=== PATIENT | female | born 1945 | race Caucasian/White ===

== ENCOUNTER 2018-03-07 10:17 | Day surgery (SDC) | payer MEDICARE, BC ==
[~2018-03-07] VITALS: Ht 177.8 cm; Wt 75.0 kg
[2018-03-07 10:58] VITALS: BP 147/76
== END 2018-03-07 13:14 | disposition home or self-care (01) ==
LOC: CACL 10:17
PROVIDERS: ATTEND Internal Medicine Cardiovascular Disease
DX: R55 Syncope and collapse (principal); R00.0 Tachycardia, unspecified; Z72.89 Other problems related to lifestyle; Z79.899 Other long term (current) drug therapy; Z98.890 Other specified postprocedural states; Z88.1 Allergy status to other antibiotic agents; Z88.0 Allergy status to penicillin
CPT/HCPCS: 33282; C1764

== ENCOUNTER → 2018-03-08 | Outpatient (CLI) | payer MEDICARE, BC ==
[~2018-03-08] MED LIST: LIDOCAINE-MPF 2%, 2ML ONE
== END | disposition home or self-care (01) ==
LOC: CVU 10:56
PROVIDERS: ATTEND Internal Medicine Cardiovascular Disease
DX: I08.2 Rheumatic disorders of both aortic and tricuspid valves (principal); I45.10 Unspecified right bundle-branch block; I45.6 Pre-excitation syndrome; R00.0 Tachycardia, unspecified; R55 Syncope and collapse; Z88.0 Allergy status to penicillin
CPT/HCPCS: 93306; J3490

== ENCOUNTER 2018-03-22 06:28 | Observation (INO) | payer MEDICARE, BC ==
[2018-03-21 12:23] LABS: BASOPHILS # (AUTO) 0.03 x10^3/uL (0-0.1); BASOPHILS % (AUTO) 0 % (0-1); EOSINOPHILS # (AUTO) 0.13 x10^3/uL (0-0.4); EOSINOPHILS % (AUTO) 2 % (1-7); LYMPHOCYTES # (AUTO) 1.83 x10^3/uL (1-3.4); LYMPHOCYTES % (AUTO) 30 % (22-44); MD NO; MEAN CORPUSCULAR HEMOGLOBIN 33.2 pg (27.0-34.8); MEAN CORPUSCULAR HGB CONC 33.9 g/dL (32.4-35.8); MEAN CORPUSCULAR VOLUME 97.8 fL (80-100); MEAN PLATELET VOLUME 8.1 fL (7.4-10.4); MONOCYTES # (AUTO) 0.56 x10^3/uL (0.2-0.8); MONOCYTES % (AUTO) 9 % (2-9); NEUTROPHILS # (AUTO) 3.48 x10^3/uL (1.8-6.8); NEUTROPHILS % (AUTO) 58 % (42-75); PLATELET COUNT 244 x10^3/uL (130-400); RED BLOOD COUNT 4.53 x10^6/uL (3.82-5.3); RED CELL DISTRIBUTION WIDTH 13.3 % (9.6-15.2)
[2018-03-21 12:39] LABS: CHLORIDE 105 mmol/L (98-107)
[2018-03-21 12:46] LABS: ALANINE AMINOTRANSFERASE 21 U/L (12-78); ALKALINE PHOSPHATASE 65 U/L (45-117); ANION GAP 7 mmol/L (5-15); BILIRUBIN,TOTAL 0.5 mg/dL (0.2-1.0); CALCIUM 9.3 mg/dL (8.5-10.1); CREATININE 0.88 mg/dL (0.55-1.02)
[2018-03-21 12:49] VITALS: BP 150/80
[~2018-03-22] VITALS: Ht 177.8 cm; Wt 77.4 kg
[~2018-03-22 06:28] MED LIST changes: +COAL21.2 TP; -LIDOCAINE-MPF 2%, 2ML ONE
[2018-03-22] MEDS ORDERED: SODIUM CHLORIDE 0.9% 1,000 ML IV SCH (06:37)
[2018-03-22] MEDS ORDERED: MIDAZOLAM 1 MG/ML, 2ML ONE (08:06)
[2018-03-22] MEDS ORDERED: VANCOMYCIN 500 MG ONE (08:07)
[2018-03-22] MEDS ORDERED: VANCOMYCIN PMX 1GM/200ML 200 ML ONE (08:07)
[2018-03-22] MEDS ORDERED: FENTANYL PF 100 MCG/2ML ONE (08:07)
[2018-03-22] MEDS ORDERED: LIDOCAINE 1%, 50ML ONE (08:07)
[2018-03-22] MEDS ORDERED: HOLD MEDICATION MC PRN (09:30)
[2018-03-22] MEDS ORDERED: COAL TAR TP SCH (09:30)
[2018-03-22] MEDS ORDERED: ACETAMINOPHEN 325 MG TABLET PO PRN (09:30)
[2018-03-22 10:00] VITALS: BP 136/81
[2018-03-22 12:31] VITALS: BP 138/79
[2018-03-22] MEDS ORDERED: VANCOMYCIN PMX 1GM/200ML 200 ML IVPB ONE (20:00)
[2018-03-22 20:39] VITALS: BP 147/86
[2018-03-22] MEDS: SODIUM CHLORIDE FLUSH 10ML SYR IVF SCH (20:39)
[2018-03-23 02:25] VITALS: BP 156/94
[2018-03-23 07:12] VITALS: BP 131/78
[2018-03-23] MEDS: SODIUM CHLORIDE FLUSH 10ML SYR IVF SCH (09:00)
[2018-03-23] MEDS ORDERED: METO25TA35 PO (09:05)
== END 2018-03-23 11:40 | disposition home or self-care (01) ==
LOC: CACL 06:28 → ORIP 09:18 → 5SO 09:53
PROVIDERS: ADMIT Internal Medicine Cardiovascular Disease; ATTEND Internal Medicine Cardiovascular Disease
DX: I44.30 Unspecified atrioventricular block (principal); R00.1 Bradycardia, unspecified; R55 Syncope and collapse; R00.0 Tachycardia, unspecified; R00.2 Palpitations; Z95.9 Presence of cardiac and vascular implant and graft, unspecified
CPT/HCPCS: 33208; 33284; 36415; 71045; 71046; 80053; 85025; 96365; 99156; 99157; C1779; C1785; C1892; G0378; J2250; J3010; J3370; J3490

== ENCOUNTER → 2018-03-29 | Outpatient (CLI) | payer MEDICARE, BC ==
[~2018-03-29] MED LIST changes: +METO25TA35 PO
== END | disposition home or self-care (01) ==
LOC: CFH 11:26
PROVIDERS: ATTEND Internal Medicine Cardiovascular Disease
DX: I45.9 Conduction disorder, unspecified (principal); R00.0 Tachycardia, unspecified; R00.2 Palpitations
CPT/HCPCS: 71046

== ENCOUNTER 2019-11-05 12:30 | Outpatient (CLI) | payer MEDICARE, BC ==
[2019-11-05 16:13] LABS: ANION GAP 4 mmol/L (5-15); CHLORIDE 108 mmol/L (98-107)
[2019-11-05 16:28] LABS: ALANINE AMINOTRANSFERASE 27 U/L (12-78); ALKALINE PHOSPHATASE 73 U/L (45-117); BILIRUBIN,TOTAL 0.7 mg/dL (0.2-1.0); CHOL/HDL RATIO 2.8; CHOLESTEROL, TOTAL 233 mg/dL (140-239); CREATININE 0.83 mg/dL (0.55-1.02); HDL CHOL % 35 % (28-40); HDL CHOLESTEROL (DIRECT) 82 mg/dL (40-60); LDL CHOLESTEROL,CALCULATED 139 mg/dL (54-169); LDL/HDL RATIO 1.7 (0.5-3.0); TOTAL PROTEIN 7.1 g/dL (6.4-8.2); TRIGLYCERIDES 58 mg/dL (50-200); VLDL CHOLESTEROL 12 mg/dL (0-25)
== END 2019-11-05 23:59 | disposition home or self-care (01) ==
LOC: CFH 12:30
PROVIDERS: ATTEND Internal Medicine Cardiovascular Disease
DX: I48.91 Unspecified atrial fibrillation (principal); I95.9 Hypotension, unspecified; R00.0 Tachycardia, unspecified; R00.1 Bradycardia, unspecified; R55 Syncope and collapse; Z95.0 Presence of cardiac pacemaker; Z79.899 Other long term (current) drug therapy
CPT/HCPCS: 36415; 80053; 80061; 80162

== ENCOUNTER → 2020-05-03 | Outpatient (CLI) | payer MEDICARE, BC | END | disposition home or self-care (01) | LOC: CVU 09:46 | PROVIDERS: ATTEND Internal Medicine Cardiovascular Disease | DX: I08.2 Rheumatic disorders of both aortic and tricuspid valves (principal); I48.91 Unspecified atrial fibrillation | CPT/HCPCS: 93306 ==

== ENCOUNTER → 2020-05-05 | Outpatient (CLI) | payer MEDICARE, BC ==
[~2020-05-05] MED LIST changes: +REGADENOSON 0.4 MG/5 ML SYRINGE ONE
== END | disposition home or self-care (01) ==
LOC: CFH 08:09
PROVIDERS: ATTEND Internal Medicine Cardiovascular Disease
DX: I48.91 Unspecified atrial fibrillation (principal); I45.10 Unspecified right bundle-branch block; R55 Syncope and collapse
CPT/HCPCS: 78452; 93017; A9502; J2785

== ENCOUNTER 2020-05-26 07:50 | Observation (INO) | payer MEDICARE, BC ==
[~2020-05-26] VITALS: Ht 177.8 cm; Wt 76.4 kg
[~2020-05-26 07:50] MED LIST changes: -REGADENOSON 0.4 MG/5 ML SYRINGE ONE
[2020-05-26] MEDS ORDERED: RIVA20TA PO (08:17)
[2020-05-26] MEDS ORDERED: DIGO250T3 PO (08:17)
[2020-05-26] MEDS ORDERED: MIDO2.5T PO (08:22)
[2020-05-26] MEDS ORDERED: TRIAMCINOLONE 0.1% (08:22)
[2020-05-26] MEDS ORDERED: FLEC50TA25 PO (08:22)
[2020-05-26] MEDS ORDERED: CA C1TAB63 PO (08:25)
[2020-05-26 08:36] VITALS: BP 142/82
[2020-05-26 08:53] LABS: ANION GAP 5 mmol/L (5-15); CHLORIDE 107 mmol/L (98-107)
[2020-05-26 08:54] LABS: CREATININE 0.91 mg/dL (0.55-1.02)
[2020-05-26 08:55] LABS: BASOPHILS % (AUTO) 1 % (0-1); EOSINOPHILS % (AUTO) 2 % (1-7); LYMPHOCYTES % (AUTO) 30 % (22-44); MEAN CORPUSCULAR HEMOGLOBIN 32.3 pg (27.0-34.8); MEAN CORPUSCULAR HGB CONC 33.4 g/dL (32.4-35.8); MEAN PLATELET VOLUME 8.4 fL (7.4-10.4); MONOCYTES % (AUTO) 9 % (2-9); NEUTROPHILS % (AUTO) 58 % (42-75); PLATELET COUNT 250 x10^3/uL (130-400)
[2020-05-26 08:59] LABS: MD NO
[2020-05-26] MEDS ORDERED: LIDOCAINE 1%, 20ML ONE (09:34)
[2020-05-26] MEDS ORDERED: MIDAZOLAM 1 MG/ML, 2ML ONE (09:34)
[2020-05-26] MEDS ORDERED: FENTANYL PF 100 MCG/2ML ONE (09:34)
[2020-05-26] MEDS ORDERED: ONDANSETRON 2MG/ML, 2ML IVPush PRN (11:00)
[2020-05-26] MEDS ORDERED: DIPHENHYDRAMINE 50 MG CAPSULE PO PRN (11:00)
[2020-05-26] MEDS ORDERED: BISACODYL 10 MG SUPP PR PRN (11:00)
[2020-05-26] MEDS ORDERED: RIVAROXABAN 20 MG TABLET PO STA (11:31)
[2020-05-26] MEDS ORDERED: ACETAMINOPHEN 325 MG TABLET ONE (12:27)
[2020-05-26] MEDS: ACETAMINOPHEN 325 MG TABLET PO PRN ×2 (12:28→19:48)
[2020-05-26 16:00] VITALS: BP 144/67
[2020-05-26] MEDS ORDERED: RIVAROXABAN 15 MG TABLET PO SCH (17:00)
[2020-05-26 19:41] VITALS: BP 123/73
[2020-05-26] MEDS: FLECAINIDE 50MG TABLET PO SCH (20:12)
[2020-05-26] MEDS: MIDODRINE 2.5 MG TABLET PO SCH (20:12)
[2020-05-26] MEDS ORDERED: DIGOXIN 0.25 MG TABLET PO SCH (21:00)
[2020-05-26 21:18] VITALS: BP 117/77
[2020-05-27 00:56] VITALS: BP 125/74
[2020-05-27 04:42] LABS: ANION GAP 4 mmol/L (5-15); CALCIUM 8.6 mg/dL (8.5-10.1); CHLORIDE 109 mmol/L (98-107); CREATININE 0.82 mg/dL (0.55-1.02)
[2020-05-27 07:50] VITALS: BP 136/72
[2020-05-27] MEDS: FLECAINIDE 50MG TABLET PO SCH (08:53)
[2020-05-27] MEDS: MIDODRINE 2.5 MG TABLET PO SCH (08:53)
[2020-05-27] MEDS: ACETAMINOPHEN 325 MG TABLET PO PRN (08:53)
[2020-05-27] MEDS ORDERED: DIGOXIN 0.25 MG TABLET PO SCH (09:00)
[2020-05-27] MEDS ORDERED: RIVAROXABAN 15 MG TABLET PO SCH (17:00)
== END 2020-05-27 10:45 | disposition home or self-care (01) ==
LOC: CACL 07:50 → ORIP 10:56 → 5SO 15:01 → DCLOUNGE 05-27 10:31
PROVIDERS: ADMIT Internal Medicine Cardiovascular Disease; ATTEND Internal Medicine Cardiovascular Disease
DX: I48.91 Unspecified atrial fibrillation (principal); I45.10 Unspecified right bundle-branch block; G43.509 Persistent migraine aura without cerebral infarction, not intractable, without status migrainosus; I95.9 Hypotension, unspecified; E78.5 Hyperlipidemia, unspecified; R55 Syncope and collapse; I45.6 Pre-excitation syndrome; R93.1 Abnormal findings on diagnostic imaging of heart and coronary circulation; F10.10 Alcohol abuse, uncomplicated; Z95.0 Presence of cardiac pacemaker; Z79.899 Other long term (current) drug therapy; Z88.0 Allergy status to penicillin
CPT/HCPCS: 36415; 70450; 80047; 80048; 85014; 85018; 85025; 93005; 93458; 99156; C1760; C1769; C1894; G0378; J2250; J3010; J3490; Q9967

== ENCOUNTER → 2021-01-05 | Outpatient (CLI) | payer MEDICARE, BC ==
[~2021-01-05] MED LIST changes: +CA C1TAB63 PO; +DIGO250T3 PO; +FLEC50TA25 PO; +MIDO2.5T PO; +RIVA20TA PO; +TRIAMCINOLONE 0.1%
== END | disposition home or self-care (01) ==
LOC: CFH 10:42
PROVIDERS: ATTEND Nurse Practitioner Family
DX: G31.9 Degenerative disease of nervous system, unspecified (principal); G44.309 Post-traumatic headache, unspecified, not intractable; R55 Syncope and collapse
CPT/HCPCS: 70450